=== PATIENT | female | born 1955 | race African-American/Black ===

== ENCOUNTER 2021-09-26 22:32 | Emergency (ER) | payer MEDICARE ==
[~2021-09-26] VITALS: Ht 160 cm; Wt 84.0 kg
[2021-09-27] MEDS ORDERED: HYDROCODONE/ACETAMINOPHEN 5/325MG TABLET PO ONE (01:15)
[2021-09-27 04:25] VITALS: BP 165/74
== END 2021-09-27 04:28 | disposition home or self-care (01) ==
LOC: ER 22:32
DX: M25.562 Pain in left knee (principal); M25.561 Pain in right knee; M79.18 Myalgia, other site; I10 Essential (primary) hypertension; E78.00 Pure hypercholesterolemia, unspecified; V43.52XA Car driver injured in collision with other type car in traffic accident, initial encounter; Y93.89 Activity, other specified; Y92.410 Unspecified street and highway as the place of occurrence of the external cause
CPT/HCPCS: 73562; 99283